=== PATIENT | female | born 1995 | race African-American/Black ===

== ENCOUNTER 2022-10-27 19:26 | Emergency (ER) | payer BC ==
[~2022-10-27] VITALS: Ht 167.6 cm; Wt 79.4 kg
[2022-10-27] MEDS ORDERED: IBUPROFEN 400 MG TABLET ONE (21:27)
[2022-10-27] MEDS ORDERED: IBUPROFEN 400 MG TABLET PO ONE (21:30)
[2022-10-27 23:21] VITALS: BP 121/66; TEMP 97.6; O2SAT 99
== END 2022-10-27 23:24 | disposition home or self-care (01) ==
LOC: ER 19:35
DX: R07.89 Other chest pain (principal); J45.909 Unspecified asthma, uncomplicated; F41.9 Anxiety disorder, unspecified
CPT/HCPCS: 71100-TC